=== PATIENT | female | born 1960 | race Caucasian/White ===

== ENCOUNTER 2020-07-31 21:12 | Inpatient (IN) | payer OTHER ==
[~2020-07-31] VITALS: Ht 154.9 cm; Wt 70.2 kg
[2020-07-31] MEDS ORDERED: SODIUM CHLORIDE 0.9% 1,000 ML IV ONE (22:07)
[2020-07-31] MEDS ORDERED: ONDANSETRON 2MG/ML, 2ML ONE (22:16)
[2020-07-31] MEDS ORDERED: MORPHINE SULFATE 4 MG/ML, 1ML ONE (22:17)
[2020-07-31] MEDS ORDERED: MORPHINE SULFATE 4 MG/ML, 1ML IVPush PRN (22:30)
[2020-07-31] MEDS ORDERED: CLINDAMYCIN PMX 600MG/50ML 50 ML IV SCH (22:30)
[2020-07-31] MEDS ORDERED: ONDANSETRON 2MG/ML, 2ML IVPush ONE (22:30)
[2020-07-31] MEDS: CLINDAMYCIN PMX 600MG/50ML 50 ML IV SCH (23:00)
[2020-07-31] MEDS ORDERED: CLINDAMYCIN PMX 600MG/50ML 50 ML ONE (23:07)
[2020-07-31] MEDS ORDERED: ONDANSETRON 2MG/ML, 2ML IVPush PRN (23:30)
[2020-07-31] MEDS ORDERED: BISACODYL 10 MG SUPP PR PRN (23:30)
[2020-07-31] MEDS ORDERED: morphine SULFATE 10 MG/ML, 1ML IVPush PRN (23:30)
[2020-07-31] MEDS: INSULIN LISPRO 100 UNITS/ML, PEN SQ-INSULIN SCH (23:30)
[2020-08-01] MEDS ORDERED: MAALOX/HYOSCYAMINE/LIDOCAINE 45 ML BTL ONE (00:23)
[2020-08-01] MEDS ORDERED: FAMOTIDINE 10 MG TAB ONE (00:23)
[2020-08-01] MEDS ORDERED: MAALOX/HYOSCYAMINE/LIDOCAINE 45 ML BTL PO ONE (00:30)
[2020-08-01] MEDS ORDERED: FAMOTIDINE 10 MG TAB PO ONE (00:30)
--- NOTE | 2020-08-01 00:36 | NUR ---
Report given to LEANNE Somers.
[2020-08-01 02:07] VITALS: BP 115/66
[2020-08-01 04:37] LABS: MEAN CORPUSCULAR HEMOGLOBIN 29.7 pg (27.0-34.8); MEAN CORPUSCULAR HGB CONC 32.4 g/dL (32.4-35.8); MEAN PLATELET VOLUME 8.1 fL (7.4-10.4); PLATELET COUNT 302 x10^3/uL (130-400); RED BLOOD COUNT 4.51 x10^6/uL (3.82-5.3); RED CELL DISTRIBUTION WIDTH 13.4 % (9.6-15.2)
[2020-08-01 04:51] LABS: ANION GAP 10 mmol/L (5-15); CALCIUM 8.1 mg/dL (8.5-10.1); CHLORIDE 101 mmol/L (98-107)
[2020-08-01 04:52] LABS: CREATININE 0.45 mg/dL (0.55-1.02)
[2020-08-01] MEDS: SODIUM CHLORIDE 0.9% 1,000 ML IV SCH ×3 (05:07→21:45)
[2020-08-01 05:36] LABS: BASOPHILS # (AUTO) 0.04 x10^3/uL (0-0.1); BASOPHILS % (AUTO) 0 % (0-1); EOSINOPHILS # (AUTO) 0.05 x10^3/uL (0-0.4); EOSINOPHILS % (AUTO) 0 % (1-7); LYMPHOCYTES # (AUTO) 2.33 x10^3/uL (1-3.4); LYMPHOCYTES % (AUTO) 15 % (22-44); MD SCAN; MONOCYTES # (AUTO) 0.99 x10^3/uL (0.2-0.8); MONOCYTES % (AUTO) 6 % (2-9); NEUTROPHILS % (AUTO) 79 % (42-75)
[2020-08-01] MEDS: CLINDAMYCIN PMX 600MG/50ML 50 ML IV SCH ×2 (06:44→21:45)
[2020-08-01] MEDS: INSULIN LISPRO 100 UNITS/ML, PEN SQ-INSULIN SCH ×3 (06:44→22:34)
[2020-08-01 07:20] VITALS: BP 95/58
[2020-08-01] MEDS ORDERED: LIDOCAINE 1%-EPI 1:100K, 20ML ONE (12:11)
[2020-08-01] MEDS ORDERED: CHLORHEXIDINE 15 ML UDC MM ONE (12:30)
[2020-08-01] MEDS ORDERED: NEO/POLY/HC EAR SUSP 10ML ONE (12:41)
[2020-08-01] MEDS ORDERED: HYDROCORTISONE 100 MG INJ. ONE (12:41)
[2020-08-01] MEDS ORDERED: FENTANYL PF 100 MCG/2ML ONE ×2 (12:45→13:55)
[2020-08-01] MEDS ORDERED: MIDAZOLAM 1 MG/ML, 2ML ONE (12:45)
[2020-08-01] MEDS ORDERED: LIDOCAINE-MPF 2% ,5ML ONE (12:47)
[2020-08-01] MEDS ORDERED: EPHEDRINE 50 MG/ML, 1ML IVPush PRN (13:00)
[2020-08-01] MEDS ORDERED: ONDANSETRON 2MG/ML, 2ML IVPush PRN (13:00)
[2020-08-01] MEDS ORDERED: LABETALOL 5MG/ML, 20ML IV PRN (13:00)
[2020-08-01] MEDS ORDERED: NEO/BACI/POLY/HC OINT 15GM TP ONE (13:00)
[2020-08-01] MEDS ORDERED: PROMETHAZINE 25 MG/ML, 1ML IVPush PRN (13:00)
[2020-08-01] MEDS ORDERED: hydrALAzine 20 MG/ML, 1ML IV PRN (13:00)
[2020-08-01] MEDS ORDERED: FENTANYL PF 100 MCG/2ML IV PRN (13:00)
[2020-08-01] MEDS ORDERED: ACETAMINOPHEN 325 MG TABLET PO PRN (13:00)
[2020-08-01] MEDS ORDERED: NEOSPORIN OINT, 15GM TP ONE (13:00)
[2020-08-01] MEDS ORDERED: HYDROmorphone 1 MG/ML, 1ML INJ IVPush PRN (13:00)
[2020-08-01] MEDS ORDERED: CLINDAMYCIN 150 MG/ML, 6ML ONE (13:15)
[2020-08-01] MEDS ORDERED: DEXAMETHASONE 4 MG/ML, 1ML ONE (13:29)
[2020-08-01] MEDS ORDERED: SUCCINYLCHOLINE 20 MG/ML, 10ML ONE (13:29)
[2020-08-01] MEDS ORDERED: ONDANSETRON 2MG/ML, 2ML ONE (13:29)
[2020-08-01] MEDS ORDERED: PROPOFOL 10 MG/ML, 20ML ONE (13:29)
[2020-08-01] MEDS ORDERED: EPHEDRINE 50 MG/ML, 1ML ONE (13:31)
[2020-08-01] MEDS ORDERED: NEOSPORIN OINT. PKT 1 PACKET TP ONE (16:00)
[2020-08-01] MEDS ORDERED: ASCO100018 PO (18:17)
[2020-08-01 20:11] VITALS: BP 118/72
[2020-08-01] MEDS ORDERED: INSULIN GLARGINE 100 UNITS/ML, PEN SQ-INSULIN SCH (21:00)
[2020-08-02 00:48] VITALS: BP 114/67
[2020-08-02] MEDS: ACETAMINOPHEN 325 MG TABLET PO PRN ×2 (03:29→19:57)
[2020-08-02] MEDS: FAMOTIDINE 20 MG TABLET PO SCH ×3 (03:30→21:50)
[2020-08-02 03:38] VITALS: BP 99/57
[2020-08-02] MEDS: INSULIN LISPRO 100 UNITS/ML, PEN SQ-INSULIN SCH ×4 (05:13→21:50)
[2020-08-02] MEDS: CLINDAMYCIN PMX 600MG/50ML 50 ML IV SCH ×3 (05:13→21:51)
[2020-08-02] MEDS: SODIUM CHLORIDE 0.9% 1,000 ML IV SCH ×3 (05:13→21:50)
[2020-08-02 05:35] LABS: BASOPHILS # (AUTO) 0.01 x10^3/uL (0-0.1); BASOPHILS % (AUTO) 0 % (0-1); EOSINOPHILS # (AUTO) 0.04 x10^3/uL (0-0.4); EOSINOPHILS % (AUTO) 1 % (1-7); LYMPHOCYTES # (AUTO) 1.05 x10^3/uL (1-3.4); LYMPHOCYTES % (AUTO) 11 % (22-44); MD NO; MEAN CORPUSCULAR HEMOGLOBIN 29.9 pg (27.0-34.8); MEAN CORPUSCULAR HGB CONC 32.5 g/dL (32.4-35.8); MEAN PLATELET VOLUME 8.6 fL (7.4-10.4); MONOCYTES # (AUTO) 0.57 x10^3/uL (0.2-0.8); MONOCYTES % (AUTO) 6 % (2-9); NEUTROPHILS # (AUTO) 7.83 x10^3/uL (1.8-6.8); NEUTROPHILS % (AUTO) 82 % (42-75); PLATELET COUNT 290 x10^3/uL (130-400); RED BLOOD COUNT 4.03 x10^6/uL (3.82-5.3); RED CELL DISTRIBUTION WIDTH 13.4 % (9.6-15.2)
[2020-08-02 05:54] LABS: CHLORIDE 106 mmol/L (98-107)
[2020-08-02 06:01] LABS: ANION GAP 9 mmol/L (5-15); CALCIUM 8.4 mg/dL (8.5-10.1); CREATININE 0.45 mg/dL (0.55-1.02)
[2020-08-02 07:06] VITALS: BP 89/58
[2020-08-02] MEDS: INSULIN GLARGINE 100 UNITS/ML, PEN SQ-INSULIN SCH ×2 (07:53→21:49)
[2020-08-02] MEDS ORDERED: INSULIN GLARGINE 100 UNITS/ML, PEN SQ-INSULIN SCH (09:00)
[2020-08-02] MEDS ORDERED: FAMOTIDINE 40 MG TABLET ONE (14:07)
[2020-08-02 14:11] VITALS: BP 110/70
[2020-08-02 18:47] VITALS: BP 100/65
[2020-08-02 19:04] VITALS: BP 100/65
[2020-08-02 22:32] LABS: CLOSTRIDIUM DIFFICILE ANTIGEN NEGATIVE; CLOSTRIDIUM DIFFICILE TOXIN NEGATIVE (Negative)
[2020-08-03 04:33] VITALS: BP 114/69
[2020-08-03] MEDS: CLINDAMYCIN PMX 600MG/50ML 50 ML IV SCH (05:35)
[2020-08-03] MEDS: ACETAMINOPHEN 325 MG TABLET PO PRN (05:35)
[2020-08-03] MEDS: SODIUM CHLORIDE 0.9% 1,000 ML IV SCH (05:35)
[2020-08-03 06:16] LABS: BASOPHILS # (AUTO) 0.02 x10^3/uL (0-0.1); BASOPHILS % (AUTO) 0 % (0-1); EOSINOPHILS # (AUTO) 0.08 x10^3/uL (0-0.4); EOSINOPHILS % (AUTO) 1 % (1-7); LYMPHOCYTES % (AUTO) 40 % (22-44); MD NO; MEAN CORPUSCULAR HEMOGLOBIN 29.8 pg (27.0-34.8); MEAN CORPUSCULAR HGB CONC 32.7 g/dL (32.4-35.8); MEAN PLATELET VOLUME 8.6 fL (7.4-10.4); MONOCYTES % (AUTO) 7 % (2-9); NEUTROPHILS # (AUTO) 4.62 x10^3/uL (1.8-6.8); NEUTROPHILS % (AUTO) 52 % (42-75); PLATELET COUNT 293 x10^3/uL (130-400); RED CELL DISTRIBUTION WIDTH 13.1 % (9.6-15.2)
[2020-08-03] MEDS: INSULIN LISPRO 100 UNITS/ML, PEN SQ-INSULIN SCH (07:00)
[2020-08-03] MEDS ORDERED: INSU100I13 SQ-INSULIN (07:50)
[2020-08-03] MEDS ORDERED: CLIN150C14 PO (07:53)
[2020-08-03 08:00] VITALS: BP 125/72
[2020-08-03] MEDS: FAMOTIDINE 20 MG TABLET PO SCH (08:06)
[2020-08-03] MEDS ORDERED: INSULIN GLARGINE 100 UNITS/ML, PEN SQ-INSULIN SCH (09:00)
== END 2020-08-03 10:32 | disposition home or self-care (01) | DRG 872 ==
LOC: ED 22:51 → EDIP 23:27 → 3N 08-01 01:06 → 4NE 08-01 15:06
PROVIDERS: ADMIT Internal Medicine; ATTEND Family Medicine
PROC: 0CDXXZ1 Extraction of Lower Tooth, Multiple, External Approach (ICD-10-PCS; 2020-08-01)
PROC: 0J910ZX Drainage of Face Subcutaneous Tissue and Fascia, Open Approach, Diagnostic (ICD-10-PCS; principal; 2020-08-01 13:00)
DX: A41.9 Sepsis, unspecified organism (principal); L02.01 Cutaneous abscess of face; L03.211 Cellulitis of face; Q60.0 Renal agenesis, unilateral; K12.2 Cellulitis and abscess of mouth; E11.65 Type 2 diabetes mellitus with hyperglycemia; E78.00 Pure hypercholesterolemia, unspecified; E78.5 Hyperlipidemia, unspecified; F17.210 Nicotine dependence, cigarettes, uncomplicated; I10 Essential (primary) hypertension; K02.9 Dental caries, unspecified; K04.7 Periapical abscess without sinus; K05.30 Chronic periodontitis, unspecified; M41.9 Scoliosis, unspecified; Z79.4 Long term (current) use of insulin; Z90.710 Acquired absence of both cervix and uterus; Z90.89 Acquired absence of other organs; Z88.6 Allergy status to analgesic agent; Z88.5 Allergy status to narcotic agent; Z88.2 Allergy status to sulfonamides; Z88.8 Allergy status to other drugs, medicaments and biological substances; Z20.828 Contact with and (suspected) exposure to other viral communicable diseases; B95.61 Methicillin susceptible Staphylococcus aureus infection as the cause of diseases classified elsewhere
CPT/HCPCS: 36415; 70100; 96374; 96375; 99285; J3490; S0077; 80048; 82962; 83036; 85025; 87070; 87075; 87077; 87186; 87205; 87324; 87635; 93005; G0378; J1100; J2250; J2405; J2704; J3010; J0330; J1720; J1815; J2270; J7030